=== PATIENT | female | born 1995 | race American Indian/Alaskan Native ===

== ENCOUNTER 2017-06-24 02:30 | Emergency (ER) | payer MEDICAID ==
[2017-06-24 03:12] LABS: Urine Drugs of Abuse Note Disclamer
[2017-06-24 03:18] LABS: Basophils % (Auto) 0.7 % (0.0-1.8); Eosinophils % (Auto) 1.5 % (0.0-4.3); Hematocrit 39.8 % (30.3-42.9); Hemoglobin 13.1 gm/dl (10.1-14.3); Mean Corpuscular HGB Conc 33 % (30-34); Mean Corpuscular Volume 77 fl (79-97); Platelet Count 233 K/mm3 (140-440); Red Blood Count 5.14 M/mm3 (3.65-5.03); Red Cell Distribution Width 14.4 % (13.2-15.2); White Blood Count 11.6 K/mm3 (4.5-11.0)
[2017-06-24 03:21] LABS: Bacteria,Urine 1+ /HPF (Negative); Bilirubin,Urine NEG (Negative); Blood,Urine NEG (Negative); Ketones,Urine NEG (Negative); Leukocyte Esterase,Urine LG (Negative); Mucus,Urine FEW /HPF; Nitrite,Urine NEG (Negative); Protein,Urine <15 mg/dL mg/dL (Negative); Urobilinogen,Urine < 2.0 mg/dL (<2.0)
[2017-06-24 03:22] LABS: Mean Corpuscular Hemoglobin 26 pg (28-32)
[2017-06-24 03:31] LABS: Anion Gap 19 mmol/L; BUN/Creatinine Ratio 14; Blood Urea Nitrogen 7 mg/dL (7-17); Calcium 9.3 mg/dL (8.4-10.2); Carbon Dioxide 24 mmol/L (22-30); Chloride 99.3 mmol/L (98-107); Glucose 93 mg/dL (65-100); Potassium 4.1 mmol/L (3.6-5.0); Sodium 138 mmol/L (137-145)
[2017-06-24] MEDS ORDERED: TORADOL IM ONE (04:49)
[2017-06-24] MEDS ORDERED: MACROBID PO ONE (04:49)
--- NOTE | 2017-06-24 05:34 | Cat Scan Report ---
FINAL REPORT EXAM: CT HEAD/BRAIN WO CON HISTORY: philip x 4 months TECHNIQUE: CT imaging acquired through the head without intravenous contrast. Transaxial reformations are provided. PRIORS: 04/02/2016 FINDINGS: The ventricles, cisterns and sulci are normal. No intraparenchymal or extra-axial mass, hemorrhage, or mass effect. David and white-matter differentiation is normal. Normal spherical shape of the globes. Paranasal sinuses and mastoid air cells are clear. Likely cerumen in the right external auditory canal. No skull or facial fracture visualized. IMPRESSION: No acute intracranial abnormality.
--- NOTE | 2017-06-24 05:49 | Emergency Department Report ---
ED Psych HPI - General Chief Complaint: Psych Stated Complaint: REJI LITTLEJOHN Time Seen by Provider: 06/24/17 03:57 Source: patient Mode of arrival: Stretcher - History of Present Illness Initial Comments: 22-year-old female with a past medical history of schizophrenia and Bipolar disorder presents to the hospital after threatening to stab herself. Patient states she has been experiencing generalized body aches and global headaches the last 4 months. She is unhappy that her mother does not take her to the doctor for evaluation. She states they were in the process of trying to get a CAT scan of her head. Patient complains of 10/10 headache now which is typical and she is use to the pain. She also complains of mild generalized abdominal pain and feels like she has to have vomiting and diarrhea but it does not come out. She denies dysuria, vaginal discharge, fever, blurred vision, or focal weakness/numbness. She denies auditory or visual hallucinations. She is compliant with her Depakote. She has a psychiatrist - Related Data Home Medications Medication Instructions Recorded Confirmed Last Taken Divalproex ER [DepaKOTE ER] 500 mg PO BID 04/04/16 06/24/17 Unknown Allergies Allergy/AdvReac Type Severity Reaction Status Date / Time No Known Allergies Allergy Verified 04/02/16 23:06 ED Review of Systems ROS: Stated complaint: REJI LITTLEJOHN Other details as noted in HPI Comment: All other systems reviewed and negative Other: Constitutional: No fevers chills Eyes: No eye pain visual changes ENT: No ear pain or throat pain Neck: Denies pain Respiratory: Denies cough wheezing shortness of breath Cardiovascular: Denies chest pain, palpitations, syncope GI: As per HPI : Denies dysuri Musculoskeletal: Denies back pain, joint swelling Skin: Denies rash, lesions, erythema Neurologic: Denies numbness, weakness Psychiatric: As per HPI ED Past Medical Hx - Past Medical History Hx Psychiatric Treatment: Yes (Bipolar, Schizophrenia) - Social History Smoking Status: Never Smoker Substance Use Type: None - Medications Home Medications: Home Medications Medication Instructions Recorded Confirmed Last Taken Type Divalproex ER [DepaKOTE ER] 500 mg PO BID 04/04/16 06/24/17 Unknown History ED Physical Exam - General Limitations: No Limitations - Other Other exam information: General: No limitations, patient is alert in no acute distress Head exam: Atraumatic, normocephalic Eyes exam: Normal appearance, pupils equal reactive to light, extraocular movements intact ENT: Moist mucous membrane, normal oropharynx Neck exam: Normal inspection, full range of motion, no meningismus nontender Respiratory exam: Clear to auscultation bilateral, no wheezes, rales, crackles Cardiovascular: Normal rate and rhythm, normal heart sounds Abdomen: Soft, nondistended, mild lower abdominal tenderness, with normal bowel sounds, no rebound, or guarding Extremity: Full range of motion normal inspection no deformity Back: Normal Inspection, full range of motion, no tenderness Neurologic: Alert, oriented x3, cranial nerves intact, no motor or sensory deficit Psychiatric: normal affect, normal mood Skin: Warm, dry, intact ED Course Vital Signs 06/24/17 06/24/17 06/24/17 02:34 04:37 05:33 Temperature 98.9 F 98.5 F Pulse Rate 98 H 93 H Respiratory 18 18 18 Rate Blood Pressure 126/87 Blood Pressure 110/71 [Left] O2 Sat by Pulse 97 100 100 Oximetry 06/24/17 05:48 Temperature Pulse Rate Respiratory 20 Rate Blood Pressure Blood Pressure [Left] O2 Sat by Pulse Oximetry - Reevaluation(s) Reevaluation #1: 06/24/17 05:48 IM Toradol and by mouth Macrobid and given - Consultations Consultation #1: 06/24/17 05:51 awaiting mental health eval ED Medical Decision Making - Lab Data Result diagrams: 06/24/17 02:58 06/24/17 02:58 Lab Results 06/24/17 06/24/17 06/24/17 Range/Units 02:57 02:57 02:58 WBC (4.5-11.0) K/mm3 RBC (3.65-5.03) M/mm3 Hgb (10.1-14.3) gm/dl Hct (30.3-42.9) % MCV (79-97) fl MCH (28-32) pg MCHC (30-34) % RDW (13.2-15.2) % Plt Count (140-440) K/mm3 Lymph % (Auto) (13.4-35.0) % [place] % (Auto) (0.0-7.3) % Eos % (Auto) (0.0-4.3) % Baso % (Auto) (0.0-1.8) % Lymph # (1.2-5.4) K/mm3 [place] # (0.0-0.8) K/mm3 Eos # (0.0-0.4) K/mm3 Baso # (0.0-0.1) K/mm3 Seg Neutrophils % (40.0-70.0) % Seg Neutrophils # (1.8-7.7) K/mm3 Sodium (137-145) mmol/L Potassium (3.6-5.0) mmol/L Chloride (98-107) mmol/L Carbon Dioxide (22-30) mmol/L Anion Gap mmol/L BUN (7-17) mg/dL Creatinine (0.7-1.2) mg/dL Estimated GFR ml/min BUN/Creatinine Ratio % Glucose (65-100) mg/dL Calcium (8.4-10.2) mg/dL HCG, Qual Negative (Negative) Urine Color Yellow (Yellow) Urine Turbidity Clear (Clear) Urine pH 5.0 (5.0-7.0) Ur Specific [place] 1.012 (1.003-1.030) Urine Protein <15 mg/dl (Negative) mg/dL Urine Glucose (UA) Neg (Negative) mg/dL Urine Ketones Neg (Negative) mg/dL Urine Blood Neg (Negative) Urine Nitrite Neg (Negative) Urine Bilirubin Neg (Negative) Urine Urobilinogen < 2.0 (<2.0) mg/dL Ur Leukocyte Esterase Lg (Negative) Urine WBC (Auto) 16.0 H (0.0-6.0) /HPF Urine RBC (Auto) 10.0 (0.0-6.0) /HPF U Epithel Cells (Auto) 1.0 (0-13.0) /HPF Urine Bacteria (Auto) 1+ (Negative) /HPF Urine Mucus Few /HPF Urine Opiates Screen Presumptive negative Urine Methadone Screen Presumptive negative Ur Barbiturates Screen Presumptive negative Valproic Acid (50-100) ug/mL Ur Phencyclidine Scrn Presumptive negative Ur Amphetamines Screen Presumptive negative U Benzodiazepines Scrn Presumptive negative Urine Cocaine Screen Presumptive negative U Marijuana (THC) Screen Presumptive positive Drugs of Abuse Note Disclamer Plasma/Serum Alcohol (0-0.07) gm% 06/24/17 06/24/17 06/24/17 Range/Units 02:58 02:58 02:58 WBC 11.6 H (4.5-11.0) K/mm3 RBC 5.14 H (3.65-5.03) M/mm3 Hgb 13.1 (10.1-14.3) gm/dl Hct 39.8 (30.3-42.9) % MCV 77 L (79-97) fl MCH 26 L (28-32) pg MCHC 33 (30-34) % RDW 14.4 (13.2-15.2) % Plt Count 233 (140-440) K/mm3 Lymph % (Auto) 30.0 (13.4-35.0) % [place] % (Auto) 7.4 H (0.0-7.3) % Eos % (Auto) 1.5 (0.0-4.3) % Baso % (Auto) 0.7 (0.0-1.8) % Lymph # 3.5 (1.2-5.4) K/mm3 [place] # 0.9 H (0.0-0.8) K/mm3 Eos # 0.2 (0.0-0.4) K/mm3 Baso # 0.1 (0.0-0.1) K/mm3 Seg Neutrophils % 60.4 (40.0-70.0) % Seg Neutrophils # 7.0 (1.8-7.7) K/mm3 Sodium 138 (137-145) mmol/L Potassium 4.1 (3.6-5.0) mmol/L Chloride 99.3 (98-107) mmol/L Carbon Dioxide 24 (22-30) mmol/L Anion Gap 19 mmol/L BUN 7 (7-17) mg/dL Creatinine 0.5 L (0.7-1.2) mg/dL Estimated GFR > 60 ml/min BUN/Creatinine Ratio 14 % Glucose 93 (65-100) mg/dL Calcium 9.3 (8.4-10.2) mg/dL HCG, Qual (Negative) Urine Color (Yellow) Urine Turbidity (Clear) Urine pH (5.0-7.0) Ur Specific [place] (1.003-1.030) Urine Protein (Negative) mg/dL Urine Glucose (UA) (Negative) mg/dL Urine Ketones (Negative) mg/dL Urine Blood (Negative) Urine Nitrite (Negative) Urine Bilirubin (Negative) Urine Urobilinogen (<2.0) mg/dL Ur Leukocyte Esterase (Negative) Urine WBC (Auto) (0.0-6.0) /HPF Urine RBC (Auto) (0.0-6.0) /HPF U Epithel Cells (Auto) (0-13.0) /HPF Urine Bacteria (Auto) (Negative) /HPF Urine Mucus /HPF Urine Opiates Screen Urine Methadone Screen Ur Barbiturates Screen Valproic Acid (50-100) ug/mL Ur Phencyclidine Scrn Ur Amphetamines Screen U Benzodiazepines Scrn Urine Cocaine Screen U Marijuana (THC) Screen Drugs of Abuse Note Plasma/Serum Alcohol < 0.01 (0-0.07) gm% 06/24/17 Range/Units 02:58 WBC (4.5-11.0) K/mm3 RBC (3.65-5.03) M/mm3 Hgb (10.1-14.3) gm/dl Hct (30.3-42.9) % MCV (79-97) fl MCH (28-32) pg MCHC (30-34) % RDW (13.2-15.2) % Plt Count (140-440) K/mm3 Lymph % (Auto) (13.4-35.0) % [place] % (Auto) (0.0-7.3) % Eos % (Auto) (0.0-4.3) % Baso % (Auto) (0.0-1.8) % Lymph # (1.2-5.4) K/mm3 [place] # (0.0-0.8) K/mm3 Eos # (0.0-0.4) K/mm3 Baso # (0.0-0.1) K/mm3 Seg Neutrophils % (40.0-70.0) % Seg Neutrophils # (1.8-7.7) K/mm3 Sodium (137-145) mmol/L Potassium (3.6-5.0) mmol/L Chloride (98-107) mmol/L Carbon Dioxide (22-30) mmol/L Anion Gap mmol/L BUN (7-17) mg/dL Creatinine (0.7-1.2) mg/dL Estimated GFR ml/min BUN/Creatinine Ratio % Glucose (65-100) mg/dL Calcium (8.4-10.2) mg/dL HCG, Qual (Negative) Urine Color (Yellow) Urine Turbidity (Clear) Urine pH (5.0-7.0) Ur Specific [place] (1.003-1.030) Urine Protein (Negative) mg/dL Urine Glucose (UA) (Negative) mg/dL Urine Ketones (Negative) mg/dL Urine Blood (Negative) Urine Nitrite (Negative) Urine Bilirubin (Negative) Urine Urobilinogen (<2.0) mg/dL Ur Leukocyte Esterase (Negative) Urine WBC (Auto) (0.0-6.0) /HPF Urine RBC (Auto) (0.0-6.0) /HPF U Epithel Cells (Auto) (0-13.0) /HPF Urine Bacteria (Auto) (Negative) /HPF Urine Mucus /HPF Urine Opiates Screen Urine Methadone Screen Ur Barbiturates Screen Valproic Acid < 2.8 L (50-100) ug/mL Ur Phencyclidine Scrn Ur Amphetamines Screen U Benzodiazepines Scrn Urine Cocaine Screen U Marijuana (THC) Screen Drugs of Abuse Note Plasma/Serum Alcohol (0-0.07) gm% - Radiology Data Radiology results: report reviewed (ct Head: normal) - Medical Decision Making CT head unremarkable, Depakote is subtherapeutic and therefore patient is likely noncompliant. Patient will be treated with Macrobid for urinary leukocytosis. She is medically clear for psychiatric evaluation and possible transfer. 1013 and transfer form had been sign at this time. Current medication will be continued - Differential Diagnosis psychosis, suicidal, intracranial mass, , UTI, abdominal pain nos Critical Care Time: No Critical care attestation.: If time is entered above; I have spent that time in minutes in the direct care of this critically ill patient, excluding procedure time. ED Disposition Clinical Impression: Suicidal ideation, Chronic headache, UTI (urinary tract infection), Body aches , Medical clearance for psychiatric admission, Marijuana use Disposition: DC/TX-65 PSY HOSP/PSY UNIT Is pt being admited?: No Does the pt Need Aspirin: No Condition: Stable Time of Disposition: 05:49 (awaiting eval )
[2017-06-24] MEDS ORDERED: MOTRIN PO PRN (05:51)
--- NOTE | 2017-06-24 11:10 | Consultation ---
History of Present Illness - Reason for Consult Consult date: 06/24/17 Reason for consult: Mental Health Evaluation Requesting physician: ANANDA JIMENEZ - Chief Complaint Chief complaint: "I wanted to " - History of Present Psychiatric Illness 22-year-old AA female presenting to PSYCHIATRIC for SI's with a plan to stab herself. Today patient is calm cooperative, but withdrawn during the assessment. She stated that she wanted to kill herself because she was experiencing LE pain bilaterally. She stated that she told her mother to make her an appt to see her doctor, she didn't, so she wanted to . She stated that her plan was to use a knife. She endorses SI's without a plan. Also, she stated that voices have been telling her to kill herself "lately." She could not confirm or deny voices currently. She denies HI's and VH's. She denies recreational drug use, but positive for marijuana. She denies alcohol consumption (etoh). She denies sleep disturbance and a poor appetite. She stated that she take Zyprexa. Medications and Allergies Allergies Allergy/AdvReac Type Severity Reaction Status Date / Time No Known Allergies Allergy Verified 04/02/16 23:06 Home Medications Medication Instructions Recorded Confirmed Last Taken Type Divalproex ER [DepaKOTE ER] 500 mg PO BID 04/04/16 06/24/17 Unknown History Active Meds: Active Medications Divalproex Sodium (Depakote Er) 500 mg PO BID [facility] Last Admin: 06/24/17 10:18 Dose: 500 mg Ibuprofen (Motrin) 800 mg PO Q8HR PRN PRN Reason: Pain Nitrofurantoin Macrocrystals (Macrobid) 100 mg PO BID [facility] Stop: 06/28/17 22:01 Past psychiatric history - Past Medical History Past Medical History: No medical history Past Surgical History: No surgical history - past Psychiatric treatment and history Psych: Bipolar, Schizophrenia psychiatric treatment history: Multiple inpatient psy settings. Fam psy hx of Bipolar DO. - Social History Social history: lives with family ([employer] graduate) Mental Status Exam - Vital signs Last Vital Signs Temp 98.2 F 06/24/17 08:38 Pulse 87 06/24/17 08:38 Resp 16 06/24/17 08:38 BP 129/86 11/12/17 08:38 Pulse Ox 100 06/24/17 08:38 - Exam Narrative exam: MSE: Appearance: calm, cooperative Behavior: regular eye contact Speech: regular rate and tone Mood: dysphoric, withdrawn Affect: flat Thought Process: circumstantial Thought Content: denies HI's and VH's, intermittent AH's Motor Activity: ambulatory Cognition: A/Ox 3 Insight: poor Judgment: poor Results Result Diagrams: 06/24/17 02:58 06/24/17 02:58 Abnormal lab results 06/24/17 06/24/17 06/24/17 Range/Units 02:57 02:58 02:58 WBC 11.6 H (4.5-11.0) K/mm3 RBC 5.14 H (3.65-5.03) M/mm3 MCV 77 L (79-97) fl MCH 26 L (28-32) pg [place] % (Auto) 7.4 H (0.0-7.3) % [place] # 0.9 H (0.0-0.8) K/mm3 Creatinine 0.5 L (0.7-1.2) mg/dL Urine WBC (Auto) 16.0 H (0.0-6.0) /HPF Valproic Acid (50-100) ug/mL 06/24/17 Range/Units 02:58 WBC (4.5-11.0) K/mm3 RBC (3.65-5.03) M/mm3 MCV (79-97) fl MCH (28-32) pg [place] % (Auto) (0.0-7.3) % [place] # (0.0-0.8) K/mm3 Creatinine (0.7-1.2) mg/dL Urine WBC (Auto) (0.0-6.0) /HPF Valproic Acid < 2.8 L (50-100) ug/mL All other labs normal. Assessment and Plan Assessment and plan: Impression: Schizophrenia vs Schizoaffective DO. Substance Use DO (marijuana) Today patient is calm cooperative, but withdrawn during the assessment. Patient endorses SI's\\ without a plan. DDx: R/O Bipolar, R/O MDD, R/O Substance Induced Mood DO Recommendation/Plan: Continue 1013 with placement to inpatient psy services. Start Zyprexa 5 mg PO HS for mood/psychotic symptoms and Cogentin 0.5 mg PO HS for EPS prevention. Discussed possible metabolic side effects of Zyprexa with patient.
[2017-06-24] MEDS: MACROBID PO SCH (22:00)
[2017-06-24] MEDS ORDERED: COGENTIN PO SCH (22:00)
[2017-06-25 07:51] VITALS: BP 128/79
[2017-06-25] MEDS: MACROBID PO SCH (10:05)
--- NOTE | 2017-06-25 11:04 | Progress Note ---
Subjective - Reason for Consult Consult date: 06/25/17 Reason for consult: Psychiatry Follow-up - Chief Complaint Chief complaint: "How are you" 22-year-old AA female presenting to [facility] for SI's with a plan to stab herself. Today patient is calm cooperative, but still withdrawn during the assessment. She stated that she does not want to kill herself, but have problems coping with "stress." She stated that the voices has "stopped." She denies SI/HI's and AVH's. She denies any side effects of her medications. Mental Status Exam - Vital signs Last Vital Signs Temp 97.9 F 06/25/17 07:50 Pulse 85 06/25/17 07:50 Resp 16 06/25/17 07:50 BP 128/79 06/25/17 07:50 Pulse Ox 98 06/25/17 07:50 - Exam Narrative exam: MSE: Appearance: calm, cooperative Behavior: regular eye contact Speech: regular rate and tone Mood: withdrawn Affect: flat Thought Process: circumstantial Thought Content: denies SI/HI's and AVH's Motor Activity: ambulatory Cognition: A/Ox 3 Insight: variable Judgment: variable Assessment and Plan Impression: Schizophrenia vs Schizoaffective DO. Substance Use DO (marijuana) Today patient is calm cooperative, but still withdrawn during the assessment. DDx: R/O Bipolar, R/O MDD, R/O Substance Induced Mood DO Recommendation/Plan: Continue 1013 with placement to [facility] today. Continue Zyprexa 5 mg PO HS for mood/psychotic symptoms and Cogentin 0.5 mg PO HS for EPS prevention. Discussed possible metabolic side effects of Zyprexa with patient. Discussed generalized coping skill with patient.
== END 2017-06-25 14:47 ==
LOC: ED 02:30
DX: N39.0 Urinary tract infection, site not specified (principal); R45.851 Suicidal ideations; R51 Headache; G89.29 Other chronic pain; M79.1 Myalgia; F12.10 Cannabis abuse, uncomplicated
CPT/HCPCS: 36415; 70450; 80048; 80164; 80307; 81001; 84703; 85025; 96372; 99285; G0480; J1885; 80320

== ENCOUNTER 2017-09-09 23:36 | Emergency (ER) | payer MEDICAID ==
[2017-09-09 23:44] VITALS: BP 138/85
[2017-09-10 00:24] LABS: Alanine Aminotransferase 17 units/L (7-56); Albumin 3.8 g/dL (3.9-5); BUN/Creatinine Ratio 15; Blood Urea Nitrogen 9 mg/dL (7-17); Calcium 8.8 mg/dL (8.4-10.2); Hemolysis Index 0
[2017-09-10 00:40] LABS: Basophils % (Auto) 0.2 % (0.0-1.8); Eosinophils # (Auto) 0.1 K/mm3 (0.0-0.4); Eosinophils % (Auto) 1.6 % (0.0-4.3); Hematocrit 36.7 % (30.3-42.9); Hemoglobin 12.1 gm/dl (10.1-14.3); Lymphocytes # (Auto) 2.5 K/mm3 (1.2-5.4); Lymphocytes % (Auto) 27.8 % (13.4-35.0); Mean Corpuscular HGB Conc 33 % (30-34); Mean Corpuscular Volume 76 fl (79-97); Monocytes % (Auto) 11.3 % (0.0-7.3); Platelet Count 235 K/mm3 (140-440); Red Blood Count 4.83 M/mm3 (3.65-5.03); Red Cell Distribution Width 14.5 % (13.2-15.2)
[2017-09-10 00:41] LABS: Mean Corpuscular Hemoglobin 25 pg (28-32)
[2017-09-10] MEDS ORDERED: NACL 0.9% 1000 ML 1,000 ML ONE (07:56)
== END 2017-09-10 | disposition left against medical advice (07) ==
LOC: ED 23:36
DX: R44.0 Auditory hallucinations (principal); Z53.21 Procedure and treatment not carried out due to patient leaving prior to being seen by health care provider
CPT/HCPCS: 36415; 80053; 84443; 85025; G0480; J7030; 80320

== ENCOUNTER 2017-09-11 18:13 | Emergency (ER) | payer MEDICAID ==
[2017-09-11 19:32] VITALS: BP 127/64
[2017-09-11 19:45] LABS: Bacteria,Urine 1+ /HPF (Negative); Bilirubin,Urine NEG (Negative); Blood,Urine NEG (Negative); Color,Urine Yellow (Yellow); Nitrite,Urine NEG (Negative); Protein,Urine <15 mg/dL mg/dL (Negative); Urobilinogen,Urine < 2.0 mg/dL (<2.0)
[2017-09-11 19:58] LABS: Amphetamine Screen,Urine PRESUMPTIVE NEGATIVE; Benzodiazepines Screen,Urine PRESUMPTIVE NEGATIVE; Cannabinoid Screen,Urine PRESUMPTIVE NEGATIVE; Cocaine Screen,Urine PRESUMPTIVE NEGATIVE; Methadone Screen,Urine PRESUMPTIVE NEGATIVE; Opiate Screen,Urine PRESUMPTIVE NEGATIVE
[2017-09-11 20:03] LABS: Basophils % (Auto) 0.3 % (0.0-1.8); Eosinophils # (Auto) 0.2 K/mm3 (0.0-0.4); Hematocrit 36.3 % (30.3-42.9); Lymphocytes # (Auto) 2.4 K/mm3 (1.2-5.4); Lymphocytes % (Auto) 26.8 % (13.4-35.0); Mean Corpuscular HGB Conc 33 % (30-34); Mean Corpuscular Volume 76 fl (79-97); Monocytes # (Auto) 0.8 K/mm3 (0.0-0.8); Monocytes % (Auto) 9.3 % (0.0-7.3); Platelet Count 255 K/mm3 (140-440); Red Blood Count 4.76 M/mm3 (3.65-5.03); Red Cell Distribution Width 14.9 % (13.2-15.2)
[2017-09-11 20:06] LABS: Mean Corpuscular Hemoglobin 25 pg (28-32)
[2017-09-11 20:19] LABS: BUN/Creatinine Ratio 10; Blood Urea Nitrogen 5 mg/dL (7-17); Calcium 8.6 mg/dL (8.4-10.2); Hemolysis Index 9
[2017-09-11] MEDS ORDERED: TYLENOL ONE (22:04)
[2017-09-11] MEDS ORDERED: BACTRIM DS PO ONE (22:16)
--- NOTE | 2017-09-11 22:20 | Emergency Department Report ---
ED Psych HPI - General Chief Complaint: Psych Stated Complaint: MH Time Seen by Provider: 09/11/17 20:45 Source: police Mode of arrival: Ambulatory - History of Present Illness Initial Comments: Patient said for about 2 months there is a man in her head that has been talking to her. She said occasionally its a family that is talking to her. She 's also been having suicidal thoughts. She said she has previously tried to commit suicide by cutting her wrist. Patient also says she feels depressed. She denies any homicidal ideation. She also complains of some visual hallucinations. MD Complaint: suicidal ideation, feels depressed -: Gradual Quality: constant Improves With: none Worsens With: none - Related Data Home Medications Medication Instructions Recorded Confirmed Last Taken risperiDONE [RisperDAL] 2 mg PO BID 09/12/17 09/12/17 09/12/17 Allergies Allergy/AdvReac Type Severity Reaction Status Date / Time No Known Allergies Allergy Verified 04/02/16 23:06 ED Review of Systems ROS: Stated complaint: MH Other details as noted in HPI Comment: All other systems reviewed and negative ED Past Medical Hx - Past Medical History Hx Psychiatric Treatment: Yes (Bipolar, Schizophrenia) - Social History Smoking Status: Never Smoker Substance Use Type: None - Medications Home Medications: Home Medications Medication Instructions Recorded Confirmed Last Taken Type risperiDONE [RisperDAL] 2 mg PO BID 09/12/17 09/12/17 09/12/17 History ED Physical Exam - General Limitations: No Limitations General appearance: alert, in no apparent distress - Head Head exam: Present: atraumatic, normocephalic - Eye Eye exam: Present: normal appearance. Absent: conjunctival injection - ENT ENT exam: Present: mucous membranes moist - Neck Neck exam: Present: normal inspection. Absent: tenderness - Respiratory Respiratory exam: Present: normal lung sounds bilaterally. Absent: respiratory distress - Cardiovascular Cardiovascular Exam: Present: regular rate, normal rhythm. Absent: systolic murmur, diastolic murmur, rubs, gallop - GI/Abdominal GI/Abdominal exam: Present: soft, normal bowel sounds - Rectal Rectal exam: Present: deferred - Extremities Exam Extremities exam: Present: normal inspection - Back Exam Back exam: Present: normal inspection. Absent: full ROM - Neurological Exam Neurological exam: Present: alert, oriented X3 - Psychiatric Psychiatric exam: Present: normal affect, depressed, suicidal ideation - Skin Skin exam: Present: warm, dry, intact, normal color. Absent: rash ED Course Vital Signs 09/11/17 09/11/17 18:58 19:32 Temperature 99.2 F Pulse Rate 88 Respiratory 20 Rate Blood Pressure 127/64 O2 Sat by Pulse 100 100 Oximetry - Reevaluation(s) Reevaluation #1: 09/12/17 01:51 Patient was seen by mental health and they feel that she will benefit from inpatient psychiatric admission. I have signed out the patient to Dr. Arevalo ED Medical Decision Making - Lab Data Result diagrams: 09/11/17 19:45 09/11/17 19:45 Critical care attestation.: If time is entered above; I have spent that time in minutes in the direct care of this critically ill patient, excluding procedure time. ED Disposition Condition: Stable Referrals: PRIMARY CARE, [Primary Care Provider] - 3-5 Days
[2017-09-12] MEDS ORDERED: RisperDAL ONE (00:08)
[2017-09-12] MEDS: RisperDAL PO SCH ×2 (00:11→01:50)
== END 2017-09-12 07:18 | disposition admitted as inpatient to this hospital (09) ==
LOC: ED 18:13 → EEVIPCON 18:13 → ED 09-12 07:18
DX: F32.9 Major depressive disorder, single episode, unspecified (principal); R45.851 Suicidal ideations
CPT/HCPCS: 36415; 80048; 80307; 81001; 84703; 85025; 99283; G0480; 80320